=== PATIENT | male | born 1980 | race Caucasian/White ===

== ENCOUNTER 2017-06-12 15:45 | Emergency (ER) | payer OTHER ==
[2017-06-12 15:47] VITALS: BP 148/89; PULSE 72; RESP 12; TEMP 98; O2SAT 100
[2017-06-12] MEDS ORDERED: LIDOCAINE HCL 1% 50 ML VIAL INFIL ONE (16:30)
--- NOTE | 2017-06-12 16:30 | PD ---
HPI Chief Complaint: Laceration/Skin Injury Time Seen by Provider: 16:04 Travel History International Travel<30 days: No Contact w/Intl Traveler<30days: No Traveled to known affect area: No History of Present Illness HPI 37-year-old male patient presents emergency department for evaluation of left index finger laceration that occurred this afternoon while he was at work. Patient states he was hit in the hand with a stainless steel metal object. He initially went to urgent care for evaluation. They completed an x-ray of the finger that showed no bony injury. Tetanus was updated at urgent care. Patient retains full range of motion of the left index finger with both flexion and extension. Left index finger is neurovascularly intact. There is no other injuries associated with this event. [facility] Social History Tobacco Use: No Allergies-Medications (Allergen,Severity, Reaction): Coded Allergies: No Known Allergies (Unverified , 06/12/17) Reported Meds & Prescriptions Reported Meds & Active Scripts Active Keflex (Cephalexin) 250 Mg Cap 250 Mg PO Q6H 7 Days Review of Systems Except as stated in HPI: all other systems reviewed are Neg Physical Exam Narrative GENERAL: Well-nourished, well-developed 37-year-old male patient in no acute distress. Nontoxic appearing. SKIN: 5cm laceration to the dorsal aspect of left index finger. HEAD: Normocephalic. Atraumatic. EYES: No scleral icterus. No injection or drainage. NECK: Supple, trachea midline. No JVD or lymphadenopathy. CARDIOVASCULAR: Regular rate and rhythm without murmurs, gallops, or rubs. RESPIRATORY: Breath sounds equal bilaterally. No accessory muscle use. GASTROINTESTINAL: Abdomen soft, non-tender, nondistended. MUSCULOSKELETAL: Full range of motion with left index finger with both flexion and extension noted. Left index finger neurovascularly intact. No obvious deformity, ecchymosis, erythema, cyanosis noted. BACK: Nontender without obvious deformity. No CVA tenderness. Data Data Last Documented VS Vital Signs Date Time Temp Pulse Resp B/P (MAP) Pulse Ox O2 Delivery O2 Flow Rate FiO2 06/12/17 15:47 98.0 72 12 148/89 (108) 100 Orders Orders Lidocaine 1% Inj (50 Ml) (Xylocaine 1% I (06/12/17 16:30) Ed Discharge Order (06/12/17 17:45) Finger ([id number]) (06/12/17 18:19) [facility] Medical Decision Making Medical Screen Exam Complete: Yes Emergency Medical Condition: Yes Differential Diagnosis Differential diagnosis include but not limited to finger laceration, contusion, sprain, cellulitis, fracture Narrative Course 37-year-old male patient presents emergency department for evaluation of laceration to his left index finger. 5 cm laceration to the dorsal aspect of his left index finger noted. Patient sustained this injury at work this afternoon with a stainless steel object hit his left index finger. There is no other trauma to his hand outside the left index finger. Patient's full range of motion of left index finger with flexion and extension. Left index finger neurovascularly intact. Laceration repaired. Please see my procedural narrative. Per my attending, Dr. Knox's recommendation a repeat x-ray was performed due to the fact that we did not see the report from the urgent care. X-ray of left index finger at our facility was negative for any fractures. Patient was discharged home with instructions to return in 7-10 days to get the sutures removed, keep the laceration clean and dry, splint in place with left index finger in slight flexion position. Patient discharged home with prescription for prophylactic antibiotics due to the hand being a high-risk location. Procedures Procedure Narrative LACERATION LOCATION: Dorsal aspect of left index finger LENGTH: 5 cm NUMBER OF STITCHES/CLARISSA: 7 sutures using 4. 0 Prolene REPAIR: The area of the laceration was prepped with Betadine and sterilely draped. The laceration was infiltrated with 1% lidocaine. The wound was copiously irrigated and explored without evidence of foreign body, tendon injury or neurovascular injury. The wound was closed using 4.0 Prolene,7 simple interrupted sutures. This was a single layer repair. A sterile dressing was applied. Left index finger was splinted and a slightly flexed position. The patient was advised to keep the dressing clean and dry. Patient tolerated the procedure well. Diagnosis Primary Impression: Finger laceration Qualified Codes: S61.211A - Laceration without foreign body of left index finger without damage to nail, initial encounter Referrals: Primary Care Physician Patient Instructions: Finger Laceration (ED), General Instructions Additional Instructions: Please return to emergency department with any signs or symptoms of infection such as increasing redness, purulent drainage, fevers. Follow up with your primary care provider. Take medications as prescribed. Keep laceration clean and dry. Return in 7-10 days to get sutures removed. May take Tylenol or ibuprofen as needed for pain or fevers. Med/Other Pt SpecificInfo: Prescription(s) given Scripts Cephalexin (Keflex) 250 Mg Cap 250 MG PO Q6H for Infection for 7 Days, #28 CAP 0 Refills Prov: Hayde Isaacs 06/12/17 Disposition: 01 DISCHARGE HOME Condition: Stable Hayde Isaacs Jun 12, 2017 16:30
[2017-06-12] MEDS ORDERED: CEPH-459 PO (17:38)
--- NOTE | 2017-06-12 19:17 | RADRPT ---
EXAM DATE/TIME: 06/12/2017 18:38 [place] COMPARISON: No previous studies available for comparison. INDICATIONS : Cut left hand second digit with piece of steel. MEDICAL HISTORY : None. SURGICAL HISTORY : None. ENCOUNTER: Initial ACUITY: 1 day PAIN SCORE: 2/10 LOCATION: Left PIP joint second digit. FINDINGS: Examination of the second digit of the left hand demonstrates no evidence of fracture or dislocation. No radiopaque foreign bodies are seen. The soft tissues are swollen at the second finger. CONCLUSION: 1. No acute fracture. Soft tissue swelling of the second finger. Macho Gilbert MD on June 12, 2017 at 19:13 Board Certified Radiologist. This report was verified electronically.
== END 2017-06-12 19:42 | disposition home or self-care (01) ==
LOC: NEPE 15:45
DX: S61.211A Laceration without foreign body of left index finger without damage to nail, initial encounter (principal); W22.8XXA Striking against or struck by other objects, initial encounter
CPT/HCPCS: 12002; 73140